=== PATIENT | male | born 1940 | race Caucasian/White ===

== ENCOUNTER 2021-04-05 10:03 | Outpatient (CLI) | payer MEDICARE, SELFPAY ==
--- NOTE | ~2021-04-05 | XR_ITS ---
XR knee LT 3V 04/05/2021 10:27 Indication: Polyarthritis Procedure: 3 views left knee Comparison: No prior studies for comparison. Findings: Moderate-severe osteoarthritis of the left knee. No significant joint effusion. No fracture or traumatic malalignment. No foreign bodies. Impression: 1: Moderate-severe osteoarthritis of the left knee. Reviewed, dictated and finalized at location B. ING PROFESSOR Impression: 1: Moderate-severe osteoarthritis of the left knee.
[2021-04-05 10:20] LABS: Hemoglobin 15.2 g/dL (12.4-15.3); Mean Corpuscular HGB Conc 32.3 g/dL (32.0-36.0); Mean Corpuscular Hemoglobin 31.1 pg (27.0-31.0); Mean Corpuscular Volume 96.1 fL (78.0-102.0); Mean Platelet Volume 9.6 fl (8.7-11.0); Platelet Count Result 176 K/mm3 (150-420); Red Blood Count 4.89 M/mm3 (4.70-6.10); Red Cell Distribution Width 12.3 % (11.6-14.4); White Blood Count 6.4 K/mm3 (4.8-10.8)
[2021-04-05 11:02] LABS: Alanine Aminotransferase 29 U/L (16-63); Albumin Level 3.8 g/dL (3.4-5.0); Alkaline Phosphatase 56 U/L (46-116); Anion Gap 8 mmol/L (8-16); Aspartate Amino Transferase 19 U/L (15-37); Bilirubin,Total 0.6 mg/dL (0.00-1.00); Blood Urea Nitrogen 17 mg/dL (7-18); Calcium 8.5 mg/dL (8.5-10.1); Carbon Dioxide 28 mmol/L (21-32); Chloride 104 mmol/L (98-108); Cholesterol 209 mg/dL (0-200); Estimated Glomerular Filt Rate 58; Glucose 79 mg/dL (70-99); HDL Direct 55 mg/dL (40-60); LDL Cholesterol Calculated 124 mg/dL (<130); Osmolality Calculated 290 mOsm/kg (285-295); Potassium 4.4 mmol/L (3.5-5.1); Sodium 140 mmol/L (136-145); Total Protein 7.3 g/dL (6.4-8.2); Triglycerides 149 mg/dL (0-150)
== END 2021-04-05 10:04 | disposition home or self-care (01) ==
LOC: CHSLAB 10:07
PROVIDERS: PCP Family Medicine; Visit Provider Family Medicine
DX: M13.0 Polyarthritis, unspecified (principal); N52.9 Male erectile dysfunction, unspecified; E78.5 Hyperlipidemia, unspecified
CPT/HCPCS: 36415; 73562; 80053; 80061; 85027

== ENCOUNTER 2022-05-05 08:29 | Outpatient (CLI) | payer MEDICARE, SELFPAY ==
--- NOTE | ~2022-05-05 | XR_ITS ---
Right Knee Technique: AP, lateral, and sunrise views were obtained. Clinical History: Chronic pain Findings: No fracture or dislocation is seen. Osseous alignment is anatomic. Mild tricompartmental de generative spurring noted. Soft tissues are unremarkable. No joint effusion is seen. Impression: Mild tricompartmental degenerative spurring. Reviewed, dictated and finalized at location . IMPROVEMENT ADVISOR Impression: Mild tricompartmental degenerative spurring.
--- NOTE | ~2022-05-05 | XR_ITS ---
XR knee LT 3V 05/05/2022 08:55 Indication: Chronic left knee pain Procedure: 3 views left knee Comparison: 04/05/2021 Findings: Stable moderate-severe tricompartment osteoarthritis of the left knee, most advanced in the medial compartment. No fracture, subluxation or dislocation. Small joint effusion. Extensive atheros clerosis. Osteopenia. Impression: 1: Stable moderate-severe osteoarthritis of the left knee. Reviewed, dictated and finalized at location B. TAL PHOTO PRINTER Impression: 1: Stable moderate-severe osteoarthritis of the left knee.
[2022-05-05 08:40] LABS: Hematocrit 43.8 % (37.0-46.0); Hemoglobin 14.3 g/dL (12.4-15.3); Mean Corpuscular HGB Conc 32.6 g/dL (32.0-36.0); Mean Corpuscular Hemoglobin 31.5 pg (27.0-31.0); Mean Corpuscular Volume 96.5 fL (78.0-102.0); Mean Platelet Volume 9.8 fl (8.7-11.0); Platelet Count Result 165 K/mm3 (150-420); Red Blood Count 4.54 M/mm3 (4.70-6.10); Red Cell Distribution Width 12.8 % (11.6-14.4)
[2022-05-05 09:13] LABS: Alanine Aminotransferase 28 U/L (16-63); Albumin Level 3.6 g/dL (3.4-5.0); Alkaline Phosphatase 50 U/L (46-116); Anion Gap 7 mmol/L (8-16); Aspartate Amino Transferase 16 U/L (15-37); Bilirubin,Total 0.6 mg/dL (0.00-1.00); Blood Urea Nitrogen 22 mg/dL (7-18); Calcium 8.5 mg/dL (8.5-10.1); Carbon Dioxide 30 mmol/L (21-32); Chloride 107 mmol/L (98-108); Cholesterol 215 mg/dL (0-200); Estimated Glomerular Filt Rate 42; Glucose 115 mg/dL (70-99); HDL Direct 58 mg/dL (40-60); LDL Cholesterol Calculated 130 mg/dL (<130); Osmolality Calculated 302 mOsm/kg (285-295); Potassium 4.1 mmol/L (3.5-5.1); Sodium 144 mmol/L (136-145); Total Protein 6.8 g/dL (6.4-8.2); Triglycerides 133 mg/dL (0-150)
== END 2022-05-05 08:30 | disposition home or self-care (01) ==
LOC: CHSLAB 08:31
PROVIDERS: PCP Family Medicine; Visit Provider Family Medicine
DX: E78.5 Hyperlipidemia, unspecified (principal); M25.562 Pain in left knee; M25.561 Pain in right knee; M17.12 Unilateral primary osteoarthritis, left knee; M76.891 Other specified enthesopathies of right lower limb, excluding foot
CPT/HCPCS: 36415; 73562; 80053; 80061; 85027

== ENCOUNTER 2023-05-04 11:07 | Outpatient (CLI) | payer MEDICARE, SELFPAY ==
[2023-05-04 11:24] LABS: Basophils Absolute Auto 0.03 K/mm3 (0.00-0.10); Basophils Percent Auto 0.4 % (0.0-1.0); Eosinophils Absolute Auto 0.23 K/mm3 (0.02-0.50); Eosinophils Percent Auto 3.4 % (1.0-6.0); Hematocrit 43.9 % (37.0-46.0); Hemoglobin 13.9 g/dL (12.4-15.3); Immature Granulocyte Absolute 0.03 K/mm3 (0.00-0.00); Immature Granulocyte Percent A 0.4 % (0.0-0.0); Lymphocytes Absolute Auto 1.16 K/mm3 (1.10-4.50); Mean Corpuscular HGB Conc 31.7 g/dL (32.0-36.0); Mean Corpuscular Hemoglobin 30.6 pg (27.0-31.0); Mean Corpuscular Volume 96.7 fL (78.0-102.0); Mean Platelet Volume 9.6 fl (8.7-11.0); Monocytes Absolute Auto 0.56 K/mm3 (0.10-0.90); Monocytes Percent Auto 8.2 % (2.0-11.0); Neutrophils Absolute Auto 4.8 K/mm3 (1.7-7.2); Neutrophils Percent Auto 70.6 % (50.0-70.0); Platelet Count Result 164 K/mm3 (150-420); Red Blood Count 4.54 M/mm3 (4.70-6.10); Red Cell Distribution Width 12.3 % (11.6-14.4); White Blood Count 6.8 K/mm3 (4.8-10.8)
[2023-05-04 13:22] LABS: Alanine Aminotransferase 25 U/L (16-63); Albumin Level 3.4 g/dL (3.4-5.0); Alkaline Phosphatase 48 U/L (46-116); Anion Gap 6 mmol/L (8-16); Aspartate Amino Transferase 18 U/L (15-37); Bilirubin,Total 0.7 mg/dL (0.00-1.00); Blood Urea Nitrogen 22 mg/dL (7-18); Calcium 8.8 mg/dL (8.5-10.1); Carbon Dioxide 31 mmol/L (21-32); Chloride 103 mmol/L (98-108); Cholesterol 222 mg/dL (0-200); Estimated Glomerular Filt Rate 50; Glucose 82 mg/dL (70-99); HDL Direct 63 mg/dL (40-60); LDL Cholesterol Calculated 134 mg/dL (<130); Osmolality Calculated 292 mOsm/kg (285-295); Potassium 4.6 mmol/L (3.5-5.1); Sodium 140 mmol/L (136-145); Total Protein 6.6 g/dL (6.4-8.2); Triglycerides 127 mg/dL (0-150)
== END 2023-05-04 11:08 | disposition home or self-care (01) ==
LOC: CHSLAB 11:09
PROVIDERS: PCP Family Medicine; Visit Provider Family Medicine
DX: E78.5 Hyperlipidemia, unspecified (principal)
CPT/HCPCS: 36415; 80053; 80061; 85025

== ENCOUNTER 2024-03-24 09:55 | Outpatient (CLI) | payer MEDICARE, SELFPAY ==
--- NOTE | ~2024-03-24 | XR_ITS ---
XR chest 2V Ordering provider: Jailyn Cai NP History: 84 years Male with . SOB,CONGESTION,COVID19 DX [id number] AGO . Comparison: None. FINDINGS: MEDIASTINUM: The cardiac silhouette is not enlarged. LUNGS: No infiltrates, effusions or pneumothorax. OTHER: No free air under the diaphragm. Degenerative changes of the spine. IMPRESSION: No acute cardiopulmonary pathology. Reviewed, dictated and finalized at location A. R TENDER
[2024-03-24 10:37] LABS: Basophils Absolute Auto 0.03 K/mm3 (0.00-0.10); Basophils Percent Auto 0.3 % (0.0-1.0); Eosinophils Absolute Auto 0.17 K/mm3 (0.02-0.50); Eosinophils Percent Auto 1.8 % (1.0-6.0); Hematocrit 43.2 % (37.0-46.0); Hemoglobin 13.9 g/dL (12.4-15.3); Immature Granulocyte Absolute 0.07 K/mm3 (0.00-0.00); Immature Granulocyte Percent A 0.7 % (0.0-0.0); Lymphocytes Absolute Auto 1.21 K/mm3 (1.10-4.50); Lymphocytes Percent Auto 12.9 % (18.0-42.0); Mean Corpuscular HGB Conc 32.2 g/dL (32-36); Mean Corpuscular Hemoglobin 30.2 pg (27.0-31.0); Mean Corpuscular Volume 93.9 fL (78.0-102.0); Mean Platelet Volume 10.1 fl (8.7-11.0); Monocytes Absolute Auto 0.57 K/mm3 (0.10-0.90); Monocytes Percent Auto 6.1 % (2.0-11.0); Neutrophils Absolute Auto 7.34 K/mm3 (1.70-7.20); Neutrophils Percent Auto 78.2 % (50.0-70.0); Platelet Count Result 233 K/mm3 (150-420); Red Cell Distribution Width 12.1 % (11.6-14.4); White Blood Count 9.4 K/mm3 (4.8-10.8)
[2024-03-24 11:20] LABS: Alanine Aminotransferase 29 U/L (16-63); Albumin Level 3.7 g/dL (3.4-5.0); Alkaline Phosphatase 59 U/L (46-116); Anion Gap 9 mmol/L (4-12); Aspartate Amino Transferase 16 U/L (15-37); Bilirubin,Total 0.7 mg/dL (0.00-1.00); Blood Urea Nitrogen 33 mg/dL (7-18); Calcium 9.1 mg/dL (8.5-10.1); Carbon Dioxide 27 mmol/L (21-32); Chloride 104 mmol/L (98-108); Estimated Glomerular Filt Rate 28; Glucose 97 mg/dL (70-99); Osmolality Calculated 297 mOsm/kg (285-295); Potassium 4.9 mmol/L (3.5-5.1); Sodium 140 mmol/L (136-145); Total Protein 6.9 g/dL (6.4-8.2)
[2024-03-24 11:21] LABS: CRP < 0.5 mg/dL (0.0-0.9)
== END 2024-03-24 09:56 | disposition home or self-care (01) ==
LOC: CHSLAB 09:57
PROVIDERS: PCP Family Medicine; Visit Provider Nurse Practitioner Family
DX: U07.1 COVID-19 (principal); R06.02 Shortness of breath
CPT/HCPCS: 36415; 71046; 80053; 85025; 85380; 86140

== ENCOUNTER 2024-05-27 10:50 | Outpatient (CLI) | payer MEDICARE, SELFPAY ==
[2024-05-27 11:08] LABS: Basophils Absolute Auto 0.04 K/mm3 (0.00-0.10); Basophils Percent Auto 0.5 % (0.0-1.0); Eosinophils Absolute Auto 0.21 K/mm3 (0.02-0.50); Eosinophils Percent Auto 2.8 % (1.0-6.0); Hematocrit 37.1 % (37.0-46.0); Immature Granulocyte Absolute 0.05 K/mm3 (0.00-0.00); Immature Granulocyte Percent A 0.7 % (0.0-0.0); Lymphocytes Absolute Auto 1.09 K/mm3 (1.10-4.50); Lymphocytes Percent Auto 14.7 % (18.0-42.0); Mean Corpuscular HGB Conc 32.3 g/dL (32-36); Mean Corpuscular Hemoglobin 30.9 pg (27.0-31.0); Mean Corpuscular Volume 95.6 fL (78.0-102.0); Mean Platelet Volume 9.6 fl (8.7-11.0); Monocytes Absolute Auto 0.46 K/mm3 (0.10-0.90); Monocytes Percent Auto 6.2 % (2.0-11.0); Neutrophils Absolute Auto 5.57 K/mm3 (1.70-7.20); Neutrophils Percent Auto 75.1 % (50.0-70.0); Platelet Count Result 237 K/mm3 (150-420); Red Blood Count 3.88 M/mm3 (4.70-6.10); Red Cell Distribution Width 13.6 % (11.6-14.4); White Blood Count 7.4 K/mm3 (4.8-10.8)
[2024-05-27 11:18] LABS: Hemoglobin A1C 5.2 % (<5.7)
[2024-05-27 11:32] LABS: Creatinine Urine 99.99 mg/dL (40-278)
[2024-05-27 11:38] LABS: MALB Creatinine Ratio 222.9 mg/g (0-30); Microalbumin Urine Random 222.9 mg/L
[2024-05-27 11:41] LABS: Alanine Aminotransferase 18 U/L (16-63); Albumin Level 3.6 g/dL (3.4-5.0); Alkaline Phosphatase 66 U/L (46-116); Anion Gap 7 mmol/L (4-12); Aspartate Amino Transferase 11 U/L (15-37); Bilirubin,Total 0.6 mg/dL (0.00-1.00); Blood Urea Nitrogen 27 mg/dL (7-18); Calcium 8.6 mg/dL (8.5-10.1); Carbon Dioxide 27 mmol/L (21-32); Chloride 107 mmol/L (98-108); Cholesterol 207 mg/dL (0-200); Estimated Glomerular Filt Rate 44; Glucose 110 mg/dL (70-99); HDL Direct 74 mg/dL (40-60); LDL Cholesterol Calculated 116 mg/dL (<130); Osmolality Calculated 298 mOsm/kg (285-295); Potassium 4.3 mmol/L (3.5-5.1); Sodium 141 mmol/L (136-145); Total Protein 7.3 g/dL (6.4-8.2); Triglycerides 86 mg/dL (0-150)
--- OUTSIDE RECORDS SUMMARY | 2024-05-27 12:24 | XMS_ITS | Clinical Summary ---
Author Organization [facility] Address Formerly [facility] [place] [address] Care Team Providers Care Traffic Maintenance Officer Name Role Phone Unavailable Primary Care Provider Unavailabl e Allergies No known active allergies Medications No known medications Encounters Date Type Department Care Team Description 03/10/2024 Telephone [facility] One Day Services [address] [place] [address] Terrence Rust MD Called To Cancel Office Appt. (Pt is cancelling surgery r/t illness ) 03/03/2024 11:59 PM GO CART MECHANIC Anesthesia Event [facility] Surgery [address] [place] [address] Arabella Hannah CRNA from Last 3 Months Social History Tobacco Use Types Packs/Day Years Used Date Smoking Tobacco: Never Smokeless Tobacco: Never Tobacco Cessation:Counseling Given: Not Answered Alcohol Use Standard Drinks/Week Comments Yes 0 (1 standard drink = 0.6 oz pur e alcohol) occ. Sex and Gender Information Value Date Recorded Sex Assigned at Not on file Legal Sex Male 2:17 PM GO CART MECHANIC Gender Identity Not on file Sexual Orientation Not on file Last Filed Vital Signs Vital Sign Reading Time Taken Comments Blood Pressure - - Pulse - - Temperature - - Respiratory Rate - - Oxygen Saturation - - Inhaled Oxygen Concentration - - Weight 98.9 kg (218 lb) 03/03/2024 10:58 AM GO CART MECHANIC Height 175.3 cm (5' 9 ) 03/03/2024 10:58 AM GO CART MECHANIC Body Mass Index 32.19 03/03/2024 10:58 AM GO CART MECHANIC Plan of Treatment Health Maintenance Due Date Last Done Comments DTaP, Tdap and Td Vaccines ( 1 - Tdap) 02/02/1960 Zoster Vaccines (1 of 2) 1991 Annual Medicare Wellness Visit 2006 Pneumococcal Vaccine: 65+ Ye ars (1 of 1 - PCV) 2006 RSV Immunization or 60+ Years (1 - 1-dose 75+ series) 02/02/2016 COVID-19 Vaccine (2 - 2023-2 5 season) 2023 01/23/2023 Influenza Adult (#1) 2023 Meningococcal B Vaccine Aged Out No l onger eligible based on patient's age to complete this topic Meningococcal Vaccine Aged Out No margarita kianna eligible based on patient's age to complete this topic RSV Immunizations Under 20 Months Aged Out No longer eligible based on patient's age to complete this topic Insurance [facility] [place] [id number]
== END 2024-05-27 10:51 | disposition home or self-care (01) ==
LOC: CHSLAB 10:51
PROVIDERS: PCP Family Medicine; Visit Provider Family Medicine
DX: N18.30 Chronic kidney disease, stage 3 unspecified (principal); E11.9 Type 2 diabetes mellitus without complications; I10 Essential (primary) hypertension; E78.5 Hyperlipidemia, unspecified
CPT/HCPCS: 36415; 80053; 80061; 82043; 83036; 85025

== ENCOUNTER 2024-06-16 11:30 | Outpatient (CLI) | payer MEDICARE, SELFPAY ==
--- NOTE | ~2024-06-16 | US_ITS ---
RIGHT UPPER EXTREMITY VENOUS ULTRASOUND Ordering provider: Jailyn Cai NP History: . M79.89 - Other specified soft tissue disorders . Comparison: None. FINDINGS: --JUGULAR: Patent and free of thrombus. Normal compressibility, phasic flow and augmentation. --SUBCLAVIAN: Patent and free of thrombus. Normal compressibility, phasic flow and augmentation. --AXILLARY: Patent and free of thrombus. Normal compressibility, phasic flow and augmentation. --BRACHIAL: Patent and free of thrombus. Normal compressibility, phasic flow and augmentation. --CEPHALIC: Patent and free of thrombus. Normal compressibility, phasic flow and augmentation. --BASILIC: Patent and free of thrombus. Normal compressibility, phasic flow and augmentation. --RADIAL: Patent and free of thrombus. Normal compressibility, phasic flow and augmentation. --ULNAR: Patent and free of thrombus. Normal compressibility, phasic flow and augmentation. IMPRESSION: Negative right upper extremity venous US. No deep vein thrombosis. Reviewed, dictated and finalized at location A.
--- OUTSIDE RECORDS SUMMARY | 2024-06-16 13:28 | XMS_ITS | Clinical Summary ---
Author Organization [facility] Address [facility] [place] [address] Care Team Providers Care Code Number Stamper Name Role Phone Unavailable Primary Care Provider Unavailabl e Allergies No known active allergies Medications No known medications Social History Tobacco Use Types Packs/Day Years Used Date Smoking Tobacco: Never Smokeless Tobacco: Never Tobacco Cessation:Counseling Given: Not Answered Alcohol Use Standard Drinks/Week Comments Yes 0 (1 standard drink = 0.6 oz pur e alcohol) occ. Sex and Gender Information Value Date Recorded Sex Assigned at Not on file Legal Sex Male 2:17 PM HCC CODERS Gender Identity Not on file Sexual Orientation Not on file Last Filed Vital Signs Vital Sign Reading Time Taken Comments Blood Pressure - - Pulse - - Temperature - - Respiratory Rate - - Oxygen Saturation - - Inhaled Oxygen Concentration - - Weight 98.9 kg (218 lb) 03/03/2024 10:58 AM HCC CODERS Height 175.3 cm (5' 9 ) 03/03/2024 10:58 AM HCC CODERS Body Mass Index 32.19 03/03/2024 10:58 AM HCC CODERS Plan of Treatment Health Maintenance Due Date Last Done Comments DTaP, Tdap and Td Vaccines ( 1 - Tdap) 02/02/1960 Zoster Vaccines (1 of 2) 1991 Annual Medicare Wellness Visit 2006 Pneumococcal Vaccine: 65+ Ye ars (1 of 1 - PCV) 2006 RSV Immunization or 60+ Years (1 - 1-dose 75+ series) 02/02/2016 COVID-19 Vaccine (2 - 2023-2 5 season) 2023 01/23/2023 Meningococcal B Vaccine Aged Out No l onger eligible based on patient's age to complete this topic Meningococcal Vaccine Aged Out No margarita kianna eligible based on patient's age to complete this topic RSV Immunizations Under 20 Months Aged Out No longer eligible based on patient's age to complete this topic Insurance [facility]
== END 2024-06-16 11:31 | disposition home or self-care (01) ==
LOC: CHSIMG 11:32
PROVIDERS: PCP Family Medicine; Visit Provider Nurse Practitioner Family
DX: M79.89 Other specified soft tissue disorders (principal)
CPT/HCPCS: 93971

== ENCOUNTER 2024-09-02 09:45 | Outpatient (CLI) | payer MEDICARE, SELFPAY ==
[2024-09-02 10:45] LABS: Alanine Aminotransferase 17 U/L (6-50); Albumin Level 3.9 g/dL (3.5-5.1); Alkaline Phosphatase 51 U/L (38-126); Anion Gap 6 mmol/L (4-12); Aspartate Amino Transferase 24 U/L (17-59); Bilirubin,Total 0.6 mg/dL (0.2-1.3); Blood Urea Nitrogen 20 mg/dL (9-20); Calcium 8.5 mg/dL (8.4-10.2); Carbon Dioxide 25 mmol/L (22-30); Chloride 109 mmol/L (98-107); Estimated Glomerular Filt Rate 46; Glucose 94 mg/dL (65-110); Osmolality Calculated 292 mOsm/kg (285-295); Potassium 4.7 mmol/L (3.4-5.0); Sodium 140 mmol/L (137-145); Total Protein 6.8 g/dL (6.3-8.2)
== END 2024-09-02 09:46 | disposition home or self-care (01) ==
LOC: CHSLAB 09:46
PROVIDERS: PCP Family Medicine; Visit Provider Family Medicine
DX: I26.99 Other pulmonary embolism without acute cor pulmonale (principal)
CPT/HCPCS: 36415; 80053

== ENCOUNTER 2024-09-25 12:44 | Outpatient (CLI) | payer MEDICARE, SELFPAY ==
--- NOTE | ~2024-09-25 | XR_ITS ---
EXAM: XR hand BI arthritis min 3V DATE: 09/25/2024 13:18 HISTORY: M13.0 - Polyarthritis, unspecified . COMPARISON: None available. FINDINGS: Decreased mineralization. No fracture or dislocation. No lytic or blastic lesion. Scattere d arthritic changes, typical of osteoarthritis, most pronounced in the right second DIP joint. Degene rative changes also noted in the bilateral distal ulna and DRUJ joints. No erosion or periosteal sosa ge. Soft tissues within normal limits. IMPRESSION: Osteopenia. 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 Reviewed, dictated and finalized at location K. IMPRESSION: Osteopenia. Mild polyarticular osteoarthritis of the hands and wris ts.
--- OUTSIDE RECORDS SUMMARY | 2024-09-25 12:47 | XMS_ITS | Clinical Summary ---
Author Organization [facility] Address [address] [place] [id number] Care Team Providers Care Education Program Manager Name Role Phone Unavailable Primary Care Provider [...] on file Legal Sex Male 2:17 PM CLINICAL LABORATORY MANAGER Gender Identity Not on file Sexual Orientation Not on file Last Filed Vital Signs Vital Sign Reading Time Taken Comments Blood Pressure - - Pulse - - Temperature - - Respiratory Rate - - Oxygen Saturation - - Inhaled Oxygen Concentration - - Weight 98.9 kg (218 lb) 03/03/2024 10:58 AM CLINICAL LABORATORY MANAGER Height 175.3 cm (5' 9) 03/03/2024 10:58 AM CLINICAL LABORATORY MANAGER Body Mass Index 32.19 03/03/2024 10:58 AM CLINICAL LABORATORY MANAGER Plan of Treatment Health Maintenance Due Date Last Done Comments DTaP, Tdap and Td Vaccines ( 1 - Tdap) 02/02/1960 Pneumococcal Vaccine: 50+ Ye ars (1 of 1 - PCV) 1991 Zoster Vaccines (1 of 2) 1991 Annual Medicare Wellness Visit 2006 RSV Immunization or 60+ Years (1 [...] patient's age to complete this topic Insurance [facility]
[2024-09-25 13:08] LABS: Hematocrit 39.4 % (37.0-46.0); Hemoglobin 12.7 g/dL (12.4-15.3); Immature Granulocyte Percent A 0.7 % (0.0-0.0); Lymphocytes Absolute Auto 0.74 K/mm3 (1.10-4.50); Mean Corpuscular HGB Conc 32.2 g/dL (32-36); Mean Corpuscular Hemoglobin 30.5 pg (27.0-31.0); Mean Corpuscular Volume 94.7 fL (78.0-102.0); Nucleated Red Blood Cells Absolute Auto 0.02 K/mm3 (0.00-0.00); Nucleated Red Blood Cells Perc 0.2 % (0-0.0); Platelet Count Result 217 K/mm3 (150-420); Red Blood Count 4.16 M/mm3 (4.70-6.10); White Blood Count 10.8 K/mm3 (4.8-10.8)
[2024-09-25 13:09] LABS: Add Urine Microscopic? YES; Appearance Urine Clear (Clear); Glucose Urine UA Negative (Negative); Leukocyte Esterase Ur Negative (Negative); Nitrate Urine Negative (Negative); Specific Grav Ur 1.015 (1.010-1.020)
[2024-09-25 13:41] LABS: Alanine Aminotransferase 23 U/L (6-50); Albumin Level 4.0 g/dL (3.5-5.1); Alkaline Phosphatase 74 U/L (38-126); Anion Gap 6 mmol/L (4-12); Aspartate Amino Transferase 31 U/L (17-59); Bilirubin,Total 1.4 mg/dL (0.2-1.3); Blood Urea Nitrogen 26 mg/dL (9-20); CRP > 9.0 mg/dL (<1.0); Calcium 8.8 mg/dL (8.4-10.2); Carbon Dioxide 25 mmol/L (22-30); Chloride 109 mmol/L (98-107); Estimated Glomerular Filt Rate 50; Glucose 125 mg/dL (65-110); Osmolality Calculated 295 mOsm/kg (285-295); Potassium 4.5 mmol/L (3.4-5.0); Sodium 140 mmol/L (137-145); Total Protein 7.2 g/dL (6.3-8.2); Uric Acid 6.8 mg/dL (3.5-8.5)
[2024-09-25 13:43] LABS: RFT Charge Test YES
[2024-09-26 13:08] LABS: Lyme IgG/IgM Rfx YES YES
[2024-09-30 08:09] LABS: ANA by IFA Rfx Titer/Pattern Negative (.)
[2024-10-01 15:09] LABS: E. chaffeensis IgG Negative (Neg:<1:64); E. chaffeensis IgM Negative (Neg:<1:20)
== END 2024-09-25 12:45 | disposition home or self-care (01) ==
PROVIDERS: PCP Family Medicine; Visit Provider Family Medicine
DX: M19.042 Primary osteoarthritis, left hand (principal); M19.041 Primary osteoarthritis, right hand; M85.88 Other specified disorders of bone density and structure, other site
CPT/HCPCS: 36415; 73130; 80053; 81001; 84550; 85025; 86038; 86140; 86430; 86431; 86618; 86666

== ENCOUNTER 2024-10-24 10:30 | Outpatient (CLI) | payer MEDICARE, SELFPAY ==
--- NOTE | ~2024-10-24 | XR_ITS ---
XR hip RT 2V w AP pelvis, XR femur RT min 2V 10/24/2024 10:48 Indication: Right leg pain Procedure: 3 views right hip including AP pelvis and 2 views right femur Comparison: No prior studies for comparison. Findings: There is mild-moderate osteoarthritis of the hips. There is lower lumbar spondylosis. Pedic les intact. There is cortical thickening of the right femoral shaft with multiple small lytic defects in the cortex of the proximal and mid femur. No acute fracture or traumatic malalignment. There is m oderate tricompartment osteoarthritis of the knee. There is atherosclerosis. Impression: 1: Cortical thickening in the right femur with multiple focal lytic defects of the cortex. Differenti al diagnosis includes infectious/inflammatory etiology such as chronic osteomyelitis, metastatic dise ase, myeloma, fibrous dysplasia and Paget's disease. Correlate clinically for history of infection, s ystemic malignancy or history of trauma. Consider correlation with MRI of the femur with contrast. Reviewed, dictated and finalized at location A. Impression: 1: Cortical thickening in the right femur with multiple focal lytic defects of the cortex. Differential diagnosis includes infectious/inflammatory etiology mortensen ch as chronic osteomyelitis, metastatic disease, myeloma, fibrous dysplasia and Paget's disease. Correlate clinically for history of infection, systemic malig mahsa or history of trauma. Consider correlation with MRI of the femur with con trast. Impression: 1: Cortical thickening in the right femur with multiple focal lytic defects of the cortex. Differential diagnosis includes infectious/inflammatory etiology mortensen ch as chronic osteomyelitis, metastatic disease, myeloma, fibrous dysplasia and Paget's disease. Correlate clinically for history of infection, systemic malig mahsa or history of trauma. Consider correlation with MRI of the femur with con trast.
--- NOTE | ~2024-10-24 | XR_ITS ---
Lumbosacral Spine: AP and lateral views Clinical History: Pain Findings: The normal lordotic curve is maintained. The vertebral bodies and posterior elements are i ntact. The intervertebral disc spaces are preserved. Moderate to advanced facet joint degenerative c hanges are present. The sacroiliac joints are normally outlined. There are extensive atherosclerotic calcifications of the aorta. Impression: Extensive facet arthropathy, as above. Reviewed, dictated and finalized at location M. Impression: Extensive facet arthropathy, as above.
== END 2024-10-24 10:31 | disposition home or self-care (01) ==
LOC: CHSIMG 10:31
PROVIDERS: PCP Family Medicine; Visit Provider Family Medicine
DX: M25.551 Pain in right hip (principal); M47.817 Spondylosis without myelopathy or radiculopathy, lumbosacral region; M89.9 Disorder of bone, unspecified
CPT/HCPCS: 72100; 73502; 73552

== ENCOUNTER 2024-11-08 10:45 | Outpatient (CLI) | payer MEDICARE, SELFPAY ==
--- NOTE | ~2024-11-08 | MR_ITS ---
EXAMINATION: MR femur RT wo/w con DATE: 11/08/2024 11:53 INDICATION: Lyme disease. Abnormal x-ray. TECHNIQUE: Magnetic resonance imaging (MRI) of the right femur/thigh was performed without and with 20 mL Multihance intravenous contrast. Sequences included axial, sagittal and coronal T1-weighted FSE and fluid sensitive FSE STIR, axial T1-weighted FS FSE and post contrast axial, sagittal and coronal T1- weighted FS FSE. COMPARISON: Right hip and femur dated 10/24/2024 FINDINGS: Bone alignment is normal. There is normal bone marrow signal throughout with no reactive edema, fracture or pathologic marrow replacing process. The lucent lesions seen along the cortex of the mid right femoral diaphysis. Correspond to multiple tiny vascular channels. No clinical significance. Right hip joint appears normal with no joint effusion. The right knee joint is not included within the field of imaging however there a small to moderate-sized joint effusion at the visualized portion of the suprapatellar pouch. There is patchy increased fluid signal in much of the musculature of the right thigh including most prominently at the vastus intermedius, proximal rectus femoris and adductor becca and distal semimembranosus muscle bellies without abnormal enhancement. No pathologically enlarged right pelvic or inguinal lymphadenopathy. IMPRESSION: 1. The small lytic lesions in the femur identified on prior radiographs. Correspond to multiple small vascular channels MRI. No pathologic marrow replacing process. 2. Nonspecific mild patchy increased fluid signal in some of the musculature of the right thigh but without abnormal enhancement. There is a wide differential which would include muscle edema related to trauma either blunt trauma, low- grade muscle strain or overuse, infectious or inflammatory myositis or denervation change. Reviewed, dictated and finalized at location A. IMPRESSION: 1. The small lytic lesions in the femur identified on prior radiographs. Corres pond to multiple small vascular channels MRI. No pathologic marrow replacing pr ocess. 2. Nonspecific mild patchy increased fluid signal in some of the musculature of the right thigh but without abnormal enhancement. There is a wide differential which would include muscle edema related to trauma either blunt trauma, low-gr vanda muscle strain or overuse, infectious or inflammatory myositis or denervatio n change.
== END 2024-11-08 10:46 | disposition home or self-care (01) ==
LOC: CHSIMG 10:46
PROVIDERS: PCP Family Medicine; Visit Provider Family Medicine
DX: M25.551 Pain in right hip (principal); M89.8X5 Other specified disorders of bone, thigh
CPT/HCPCS: 73720; A9577

== ENCOUNTER 2024-11-21 13:27 | Outpatient (CLI) | payer MEDICARE, SELFPAY ==
[2024-11-21 13:43] LABS: Hematocrit 37.0 % (37.0-46.0); Hemoglobin 11.9 g/dL (12.4-15.3); Immature Granulocyte Percent A 0.5 % (0.0-0.0); Lymphocytes Absolute Auto 1.56 K/mm3 (1.10-4.50); Mean Corpuscular HGB Conc 32.2 g/dL (32-36); Mean Corpuscular Hemoglobin 30.7 pg (27.0-31.0); Mean Corpuscular Volume 95.4 fL (78.0-102.0); Nucleated Red Blood Cells Absolute Auto 0.00 K/mm3 (0.00-0.00); Nucleated Red Blood Cells Perc 0.0 % (0-0.0); Platelet Count Result 237 K/mm3 (150-420); Red Blood Count 3.88 M/mm3 (4.70-6.10); White Blood Count 7.5 K/mm3 (4.8-10.8)
--- OUTSIDE RECORDS SUMMARY | 2024-11-21 14:14 | XMS_ITS | Clinical Summary ---
Author Organization [facility] Address [address] [place] [address] Care Team Providers Care Metal Sander Name Role Phone Unavailable Primary Care Provider [...] on file Legal Sex Male 2:17 PM CORE COMPOSER MACHINE TENDER Gender Identity Not on file Sexual Orientation Not on file Last Filed Vital Signs Vital Sign Reading Time Taken Comments Blood Pressure - - Pulse - - Temperature - - Respiratory Rate - - Oxygen Saturation - - Inhaled Oxygen Concentration - - Weight 98.9 kg (218 lb) 03/03/2024 10:58 AM CORE COMPOSER MACHINE TENDER Height 175.3 cm (5' 9) 03/03/2024 10:58 AM CORE COMPOSER MACHINE TENDER Body Mass Index 32.19 03/03/2024 10:58 AM CORE COMPOSER MACHINE TENDER Plan of Treatment Health Maintenance Due Date Last Done Comments DTaP, Tdap and Td Vaccines ( 1 - Tdap) 02/02/1960 Pneumococcal Vaccine: 50+ Ye ars (1 of 1 - PCV) 1991 Zoster Vaccines (1 of 2) 1991 Annual Medicare Wellness Visit 2006 RSV Immunization or 60+ Years (1 - 1-dose 75+ series) 02/02/2016 COVID-19 Vaccine (2 - 2024-2 6 season) 2024 01/23/2023 Meningococcal B Vaccine Aged Out No l onger eligible based on patient's age to complete this topic Meningococcal Vaccine Aged Out No margarita kianna eligible based on patient's age to complete this topic RSV Immunizations Under 20 Months Aged Out No longer eligible based on patient's age to complete this topic Insurance [facility]
[2024-11-21 14:24] LABS: Alanine Aminotransferase 17 U/L (6-50); Albumin Level 4.3 g/dL (3.5-5.1); Alkaline Phosphatase 67 U/L (38-126); Anion Gap 10 mmol/L (4-12); Aspartate Amino Transferase 21 U/L (17-59); Bilirubin,Total 0.6 mg/dL (0.2-1.3); Blood Urea Nitrogen 25 mg/dL (9-20); CRP < 0.5 mg/dL (<1.0); Calcium 9.5 mg/dL (8.4-10.2); Carbon Dioxide 21 mmol/L (22-30); Chloride 110 mmol/L (98-107); Creatine Kinase 33 U/L (55-170); Estimated Glomerular Filt Rate 45; Glucose 88 mg/dL (65-110); Osmolality Calculated 295 mOsm/kg (285-295); Potassium 4.8 mmol/L (3.4-5.0); Sodium 141 mmol/L (137-145); Total Protein 6.9 g/dL (6.3-8.2)
[2024-11-25 14:09] LABS: B microti IgG <1:10 (Neg:<1:10); E. chaffeensis IgG Negative (Neg:<1:64); Lyme IgG/IgM Rfx YES YES
[2024-11-26 13:08] LABS: ANA by IFA Rfx Titer/Pattern Negative (.)
== END 2024-11-21 13:28 | disposition home or self-care (01) ==
LOC: CHSLAB 13:27
PROVIDERS: PCP Family Medicine; Visit Provider Family Medicine
DX: M60.9 Myositis, unspecified (principal)
CPT/HCPCS: 36415; 80053; 82085; 82550; 83615; 85025; 85652; 86038; 86140; 86618; 86666

== ENCOUNTER 2025-01-12 08:45 | Outpatient (RCR) | payer MEDICARE, SELFPAY ==
--- NOTE | 2025-01-12 09:59 | OPREHPOC ---
Outpatient Therapy Plan of Care This is a Multidisciplinary Plan of Care that may contain components documented by all disciplines (PT, OT, and ST.) PT Problem 1 PT Problem #1 Knowledge Deficit PT Goal 1 Goal / Goal Update Independent and compliant with HEP. Target Visit 2 PT Problem 2 PT Problem #2 Impaired Strength PT Goal 1 Goal / Goal Update Pt to improve R hip and knee strength to 4+/5. Target Visit 4 PT Problem 3 PT Problem #3 Impaired Balance PT Goal 1 Goal / Goal Update Pt to demonstrate moderate fall risk on Tinetti. Pt to improve TUG time to 18 seconds or less. Pt to improve 5xSTS time to 23 seconds or less. Target Visit 4 PT Problem 4 PT Problem #4 Impaired Functional Mobility PT Goal 1 Goal / Goal Update Pt to report being able to stand for more than 20 minutes before needing to rest. Pt to report sleeping through the night at least 3 nights out of the week. Target Visit 4
--- NOTE | 2025-01-12 09:59 | PTOPEVAL1 ---
Assessment and note entered by Nicole Patel, PT Evaluation Information Assessment Status Evaluation ICD-10 Condition Codes (PT) Repeated falls R29.6,Difficulty Walking R26.2, Weakness R53.1 Other ICD-10 Condition Codes ( M60.9 PT) Onset 01/06/25 Subjective Information Pt reports he has lyme disease and he's lost a lot of strength in his right leg. He reports he's lost muscle over time and that it affects his ability to go down stairs and stand up from a chair. He also reports his balance has been affected and he walks wobbly. He states he cannot stand for more than 15 minutes without his back hurting which affects his ability to cook. He also has to sit to shower. He notes a couple falls in the last year which resulted from tripping over objects, and he states he is not able to get up from the ground on his own. He does note annoying pain in his R leg primarily in the upper thigh that throbs and tends to worsen at night and interfere with his sleeping. He states he does follow up with a doctor for lyme disease and saw the doctor last week. Reported Pain Level Pain Score 3: Self Report Assessment PT Clinical Summary Mr. Reed is an 84 yo male presenting to skilled PT evaluation for R leg pain and weakness over time due to Lyme disease. He demonstrates moderate deficits in R hip and knee strength, he is high fall risk per Tinetti and also demonstrates imbalance and LE weakness on TUG and 5xSTS respectively. His weakness and imbalance causes him difficulty with navigating stairs, standing up from chairs, and standing for prolonged periods to perform household tasks. He will benefit from skilled PT intervention to address these deficits to improve his functional independence and endurance. Plan of Care Interventions Electrical Stimulation,Gait Training,Hot Pack/Cold Pack,Manual Therapy,Neuro Re-education,Patient/ Caregiver Education,Therapeutic Activities, Therapeutic Exercise,Self-Care/Home Management PT Services Indicated Yes Treatment Frequency and 1x/week for 4 visits Duration These treatments will address the objective and functional deficits as defined above. The patient will be advanced safely and appropriately in order for the patient to progress towards his/her prior level of function. Additional exercises will be introduced and as well as a comprehensive home exercise program upon discharge, if needed, ?to ensure carryover of functional gains achieved in the clinic. This treatment plan has been reviewed and agreement upon by the patient.
--- NOTE | 2025-03-30 16:25 | PCPTNOTE ---
Mr. Reed was seen in clinic for his PT evaluation on 01/12/25. He has not attended PT since this evaluation. Pt was contacted via phone call this date and reports he doesn't feel like he needs PT and would like to discharge Dr. Nicole Patel PT, DPT
== END 2025-01-22 20:00 | disposition home or self-care (01) ==
LOC: CHSPT 08:45
PROVIDERS: PCP Family Medicine; Visit Provider Family Medicine
DX: M60.9 Myositis, unspecified (principal); R26.2 Difficulty in walking, not elsewhere classified; R53.1 Weakness
CPT/HCPCS: 97110; 97161

== ENCOUNTER 2025-01-14 08:38 | Outpatient (CLI) | payer MEDICARE, SELFPAY ==
--- NOTE | 2025-01-29 15:40 | WPDPFTINT ---
PFT Procedure Performed PFT Procedure Performed Spirometry with Pre/Post Bronchodilator Plethysmography (Lung Vol) Diffusing Cap (DLCO) Flow Vol Loop PFT Interpretation DOS: 01/14/2025 REQUESTING: Lul Robert DO REASON FOR TESTING: Dyspnea on exertion PULMONARY FUNCTION TESTS Results are reliable and reproducible. Repeatability of spirometry FEV1 maneuver pre and post bronchodilator is Grade A. Yajaira Cotton Dust reference equations were used. Spirometry: The pre-bronchodilator FEV1 is 1.29 L, 54%, moderately decreased. The pre-bronchodilator FVC is 2.88 L, 90%. The FEV1/FVC ratio is 45%, decreased. After bronchodilator, the FEV1 is 1.52 L, 63%, +18% which is significant. After bronchodilator, the FVC is 3.17 L, 100%, +10%. The FEV1/FVC ratio is 48%. Lung volumes: The total lung capacity is 8.08 L, 144%, increased. The residual volume is 5.20, 204%, increased. The RV/TLC is 64%, increased. FRC is 6.52 L, 219%, increased. Airway resistance is increased. Diffusion: DLCO is 13.4, 70%, mildly decreased. The DLCO/VA is 3.23, 99%, normal. Flow volume loop: The flow volume loop shows coving of the expiratory limb. IMPRESSION: This study shows a moderately severe obstructive ventilatory defect with excellent response to bronchodilator with more than 200 mL increase in FEV1, moderate hyperinflation, severe air trapping, and a mild diffusion impairment which corrects for alveolar volume. No prior studies to compare. Aria Zaidi MD
== END 2025-01-14 08:39 | disposition home or self-care (01) ==
LOC: CHSCARD 08:39
PROVIDERS: PCP Family Medicine; Visit Provider Family Medicine
DX: R06.09 Other forms of dyspnea (principal); R94.2 Abnormal results of pulmonary function studies
CPT/HCPCS: 94060; 94726; 94729